=== PATIENT | female | born 1990 | race Asian ===

== ENCOUNTER 2019-08-31 16:57 | Inpatient (IN) | payer OTHER ==
[~2019-08-31] VITALS: Ht 152.4 cm; Wt 61.6 kg
[2019-08-31] VITALS (12 sets, daily range): BP systolic 126–158; BP diastolic 77–103
[2019-08-31] MEDS ORDERED: PRENTAB9 PO (17:23)
[2019-08-31] MEDS ORDERED: LACTATED RINGER'S 1000 ML IV STA (18:35)
[2019-08-31 19:09] LABS: BASO % 0.2 % (0.0-1.0); EOS % 0.4 % (0.0-3.0); HEMATOCRIT 41.1 % (36.0-47.0); HEMOGLOBIN 14.1 g/dl (12.0-15.5); LYMPH # 1.8 10^3/uL (1.5-5.0); LYMPH % 33.5 % (24.0-44.0); MEAN CORPUSCULAR HEMOGLOBIN 32.3 pg (27.0-33.0); MEAN CORPUSCULAR HGB CONC 34.3 g/dl (32.0-36.5); MEAN CORPUSCULAR VOLUME 94.3 fl (80.0-96.0); MONO # 0.6 10^3/uL (0.0-0.8); MONO % 11.2 % (0.0-5.0); NEUTROPHILS # 2.9 10^3/uL (1.5-8.5); NEUTROPHILS % 54.3 % (36.0-66.0); PLATELET COUNT, AUTOMATED 193 10^3/uL (150-450); RED BLOOD COUNT 4.36 10^6/uL (4.00-5.40); WHITE BLOOD COUNT 5.3 10^3/uL (4.0-10.0)
--- NOTE | 2019-08-31 19:13 | HPEPDOC ---
Obstetrical History & Physical General Date of Admission Aug 31, 2019 at 16:57 History of Present Illness Patient is at 38.2 weeks by 18 week dating ultrasound with GDM A1 and pree clampsia. She denies contractions, loss of fluid, bleeding. Good movement. Patient had regular blood pressures and good diabetes control with fastings in the 60s to 80s and postprandials in the 80s to 110s. In the past week, her blood pressure went from the normal range to 140s over 90s. For the past 2 days. She began seeing spots continuously. No headaches or facial swelling or right upper quadrant pain. Preeclamptic panel has been normal with 24-hour urine protein in the 200s. 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 Past Medical History Medical History none Surgical History: Denies/None Family History Significant Family History: No pertinent family hx Social History Marital Status: Family situation: Spouse/partner home Psychosocial History: No pertinent psych hx * Smoker: non-smoker Alcohol: Denies Drugs: denies Abuse Violence Screening Have you been hit/kicked/slapp: No Have you been sexually assault: No Imunizations Tdap status: current Influenza Status: current Allergies Coded Allergies: amoxicillin (Verified Allergy, Intermediate, 08/31/19) RASH Medications Scheduled No.137/Iron/Folic Acd ( Vitamin Tablet) 1 Each Tablet, 1 TAB PO DAILY Physical Examination Physical Examination GENERAL: Alert and oriented times three. BREAST: . ABDOMEN: Gravid and non-tender to touch. FETUS: Is vertex (VTX) by US on 08/06/2019, fetus is vertex (VTX) by [facility]. HEART RATE: Regular rate and rhythm. LUNGS: Clear to auscultation (CTA). EXTREMITIES: No edema. Laboratory Data 24H LABS Laboratory Tests 2 08/31/19 17:09: Serology Scanned Report Hepatitis B Testing 08/31/19 18:28: CBC/BMP Pertinent Laboratoy Data Blood Type: A+ RBC Antibody Screen: Negative HIV: Negative Hepatitis B: Negative Rapid Plasma Reagin: Nonreactive Rubella: Immune Varicella: Immune Chlamydia/Gonorrhea: Negative Group B Streptococcus: Negative Quad Screen Test: Negative ( ) Glucose Tolerance Test: 191 Anatomy Ultrasound Ultrasound Date: Apr 30, 2019 Placenta Location: Anterior Normal Anatomy: Yes Placenta Previa: No Estimated Weight (grams): 368 Steroid Therapy Steroid Therapy: No Vaginal Examination Dilation: None Effacement: 30% Station: -3 Cervical Consistency: Medium Cervical Position: Posterior Assessment Heart Rate (FHR): 140 Variability: Moderate Decelerations: None Tocometer Contractions: No Multi-drug resistant Organism: No history of MDRO Assessment/Plan Assessment Patient is at 38.2 weeks by 18 week dating ultrasound with GDM A1 and preeclampsia. Admit for preeclampsia with induction and expect delivery by . Induction to be started with oral Cytotec. No need for magnesium sulfate at this time due to blood pressures in the 140s over 90s. Pain management per patient preference, which was discussed with her. I discussed risks of with patient of failure with section, distress, bleeding, infection, , vaginal or perineal or neighboring organ tear. Currently, fetus is reassuring. GBS is negative, no need for antibiotics. Plan Admit and orient. [employer] and consent. Diet: Regular. Group B Streptococcus (GBS) negative. Labs and intravenous (IV) per unit protocol. Counseled on Pitocin and induction of labor (IOL) with oral Cytotec. Lactated Ringers (LR): Bolus 500 mL, then at, 125 mL/hr once in active labor. Anticipate normal spontaneous delivery (). Pain medication per patient desire. No Silver MD Aug 31, 2019 19:13
[2019-08-31] MEDS: miSOPROStol 25 MCG 1/4 TAB (S0191) PO PRN (19:28)
[2019-08-31] MEDS ORDERED: BUTORPHANOL 2 MG/ML INJ (J0595) IV PRN (19:30)
[2019-08-31] MEDS ORDERED: PROMETHAZINE INJ 25 MG/ML VIAL (J2550) IV PRN (19:30)
[2019-08-31] MEDS ORDERED: CALCIUM CARBONATE 500 MG CHEW U/D PO PRN (19:30)
[2019-08-31] MEDS ORDERED: SIMETHICONE 80 MG CHEW TAB PO PRN (19:30)
[2019-08-31] MEDS ORDERED: ACETAMINOPHEN 500 MG TAB PO PRN (19:30)
[2019-08-31] MEDS ORDERED: MOM 30ML SUSPENSION UDC PO PRN (19:30)
[2019-09-01] VITALS (33 sets, daily range): BP systolic 88–176; BP diastolic 50–101
[2019-09-01] MEDS: miSOPROStol 25 MCG 1/4 TAB (S0191) PO PRN (01:31)
[2019-09-01] MEDS ORDERED: miSOPROStol 50 MCG 1/2 TAB (S0191) PO PRN (07:30)
[2019-09-01 10:44] LABS: ALT/SGPT 24 U/L (12-78); BILIRUBIN,TOTAL 0.3 MG/DL (0.2-1.0); CREATININE FOR GFR 0.85 MG/DL (0.55-1.30); GLOMERULAR FILTRATION RATE > 60.0 (>60); LDH LACTATE DEHYDROGENASE 112 U/L (84-246); URIC ACID 6.6 MG/DL (2.6-6.0)
[2019-09-01 11:20] LABS: TOTAL PROTEIN,RANDOM URINE 36.9 MG/DL (0.0-12.0)
--- NOTE | 2019-09-01 12:58 | IPN ---
DATE: 09/01/2019 This is a 28-year-old, 1, para 0 at 38 and 3, was admitted for induction of labor because of preeclampsia and AGDM 1 well-controlled. She had two lots of misoprostol 25 mg, had some contractions. Presently, she is having contractions 2-6 minutes apart. She is feeling them and when they come, they are moderate intensity. No vaginal bleeding or loss. Category 1 strip. Evaluation of the cervix is posterior, fingertip, minus 2 station, 50% effaced. She was given one lot of Cytotec 50 mg, and we will continue on cervical ripening. Safe to proceed. Presently, her blood pressure is 143/81. She has been running with a diastolic in the low 90s. She has only had two episodes of midrange, severe range blood pressures back on 08/31/2019 at 1919 hours and 1927 hours at 156/103 and 158/93. Her chemistry shows her hemoglobin 14.1, hematocrit 41.1, and platelets are 193. Chemistry was not done; however we are anticipating delivery of this patient.
[2019-09-01] MEDS ORDERED: SLF 3 ML SYR IV PRN (13:00)
[2019-09-01] MEDS: SLF 3 ML SYR IV SCH ×2 (13:01→22:00)
[2019-09-01] MEDS: LR 1,000 ML IV SCH ×2 (14:07→18:00)
--- NOTE | 2019-09-01 15:03 | IPN ---
DATE: 09/01/2019 1, para 0 at 38 and 3 weeks of gestation who was admitted for with contractions. No loss of fluid or bleeding. She has a history of preeclampsia and GDA 1, well controlled. She had been given two lots of Cytotec at 25 and 25 and then she was given 50 mg Cytotec. She had good contractions 2-6 minutes apart, down to 2-4 minutes apart. However, blood pressures have been drifting upwards. She has had a couple of 160s on 82, 169/100, 131/90. Her reflexes are normal. Eye grounds are normal. No right upper quadrant pain. No edema and otherwise she is feeling well except she is minding her contractions. When she was initially seen, she was a fingertip, posterior and high. She has been assessed 2 hours later prior to the admission of Cytotec 50 mg, she was 1 cm posterior and still high. She is presently complaining of intense contraction pain and is requesting IV pain medication. PHYSICAL EXAMINATION: On examination, 100% effaced. She is 4 cm, bulging membranes and 0 station. Presently, she has requested IV pain meds, which will be is administered shortly. Her evaluation for her preeclampsia showed that she had a normal CBC and platelets. Her chemistry showed that her uric acid was 6.6. Her liver functions were normal and GFR was greater than 60. Her protein creatinine ratio was 0.336. Our plan of management is to give her IV meds, have her get her pain under control, do an artificial rupture of membranes, anticipating good progress after that, monitoring her blood sugars. We will hold off with the mag sulfate at present time. She may require magnesium sulfate .
[2019-09-01] MEDS ORDERED: OXYTOCIN DRIP 30 UNITS in IV 1 EA IV SCH (17:15)
--- NOTE | 2019-09-01 18:21 | IPN ---
DATE: 09/01/2019 This 24-year-old 1, para 0 was admitted with contractions and induction of labor because of being in gestational diabetes mellitus 1 (aGDM 1) and preeclampsia. She had a reasonable sleep after some intravenous (IV) medication. She was still only 4 cm and 50-70% effaced at -1 station, but the contractions were spacing out. Reviewed the risks and benefits of artificial rupture or membranes and she agreed which, we did and she had an artificial rupture of membranes (ARM) of clear liquor. The vertex came down in the occiput posterior (OP) position. She is going to require some augmentation with Pitocin, which she has been placed in. She presently still has a category one strip and is safe to proceed.
[2019-09-01] MEDS ORDERED: LR 500 ML IV ONE (19:00)
[2019-09-01 19:15] LABS: HEMATOCRIT 44.2 % (36.0-47.0); HEMOGLOBIN 14.8 g/dl (12.0-15.5); MEAN CORPUSCULAR HEMOGLOBIN 31.9 pg (27.0-33.0); MEAN CORPUSCULAR HGB CONC 33.5 g/dl (32.0-36.5); MEAN CORPUSCULAR VOLUME 95.3 fl (80.0-96.0); PLATELET COUNT, AUTOMATED 201 10^3/uL (150-450); RED BLOOD COUNT 4.64 10^6/uL (4.00-5.40); WHITE BLOOD COUNT 9.9 10^3/uL (4.0-10.0)
[2019-09-01] MEDS ORDERED: FENTANYL 2MCG/ML ROPIVACAINE 0.2% IN 0.9% NACL 100ML IVBAG As Ordered ONE (19:36)
[2019-09-01] MEDS ORDERED: EPIDURAL COMMENT XX SCH (20:00)
[2019-09-01] MEDS ORDERED: diphenhydrAMINE INJ 50MG/ML VIAL (J1200) IV PRN (20:00)
[2019-09-01] MEDS ORDERED: LACTATED RINGER'S 1000 ML IV PRN (20:00)
[2019-09-01] MEDS ORDERED: EPIDURAL/PCA KEYS XX PRN (20:00)
[2019-09-01] MEDS ORDERED: ONDANSETRON 4MG/2ML VIAL (J2405) IV PRN (20:00)
[2019-09-01] MEDS ORDERED: FENTANYL/ROPIVACAINE/NACL BAG 100 ML EPIDURAL SCH (20:00)
[2019-09-01] MEDS ORDERED: ePHEDrine SULFATE 25 MG/5 ML(5MG/ML) SYRINGE IV PRN (20:00)
[2019-09-01] MEDS ORDERED: REFRIGERATOR IV KEYS XX PRN (20:00)
[2019-09-01] MEDS ORDERED: NALOXONE INJ 0.4 MG/1 ML VIAL (J2310) IV PRN (20:00)
--- NOTE | 2019-09-01 20:55 | IPN ---
DATE: 09/01/2019 at 2030 hours This patient was admitted with occasional contractions with induction of labor because of preeclampsia and AGDM 1, well controlled. She had an epidural in place and had some spontaneous late decelerations. Bolusing of fluid and repositioning somewhat improved the contraction pattern, presently a category 2 strip. tachycardia runs of 180 down to 150. Contractions are about 2-4 minutes apart. She is on Pitocin 6 milliunits, and this is where the Pitocin has been maintained. On digital examination by the nurse, she is 4-5 cm, well applied to the cervix and -2 station. No meconium was noted. The patient is afebrile, 99.1, and her last blood pressure was 150/92, respirations 16, pulse 123. Epidural is working appropriately. We will re-evaluate this lady in 1 hour's time unless there is indication to move forward earlier. At the present time, it is safe to proceed. We are going to maintain the Pitocin 6 milliunits unless category 2 strip resolves to a category 1.
--- NOTE | 2019-09-01 23:01 | IPN ---
DATE: 09/01/2019 Time is 2200 hours on 09/01/2019 This lady is a 1, para 0, was admitted for induction of labor having AGDM1, well controlled and preeclampsia (pre-e). She had slow progress until she had her epidural in place. She had an artificial rupture of membranes (AROM) draining clear liquor. She was still 5 cm and 0 station. She did have some lates and some variables and a category 2 strip. With re-bolusing and changing positions, the baby somewhat recovered. There was some prolonged areas of tachycardia but now the baseline is running about 150. She is at 8 milliunits per minute and evaluation of her cervical dilatation: She is an anterior lip, off to the right. There is some molding and still 0 station. Her blood pressure is 117/70, heart rate is 120, blood pressures have somewhat come down since her epidural 131/68, 136/66. Our plan of management is to maintain the Pitocin, and since we are somewhat reassuring, we will continue on and reevaluate her in 2 hours' time. Safe to proceed.
[2019-09-02] MEDS ORDERED: MOM 30ML SUSPENSION UDC PO PRN (01:00)
[2019-09-02] MEDS ORDERED: METHYLERGONOVINE MALEATE 0.2 MG TAB PO PRN (01:00)
[2019-09-02] MEDS ORDERED: IBUPROFEN 600 MG TAB PO PRN (01:00)
[2019-09-02] MEDS ORDERED: ANUSOL HC CREAM 30GM TOP PRN (01:00)
[2019-09-02] MEDS ORDERED: ACETAMINOPHEN TAB 650MG DOSE (2X325MG) PO PRN (01:00)
[2019-09-02] MEDS ORDERED: DOCUSATE SODIUM 100 MG CAP PO PRN (01:00)
[2019-09-02] MEDS ORDERED: IBUPROFEN 800 MG TAB PO PRN (01:00)
[2019-09-02] MEDS ORDERED: RHOGAM 300 MCG (1500 IU) INJ (J2790) IM SCH (01:00)
[2019-09-02] MEDS ORDERED: OXYTOCIN DRIP 30 UNITS in IV 1 EA IV ONE (01:00)
[2019-09-02] MEDS ORDERED: OXYTOCIN INJ 10 UNITS/ML VIAL (J2590) IV ONE (01:00)
[2019-09-02] MEDS ORDERED: MEASLES,MUMPS,RUBELLA VACCINE INJ (MMR-II) (90707) SC SCH (01:00)
[2019-09-02] MEDS ORDERED: ACETAMINOPHEN 500 MG TAB PO PRN (01:00)
[2019-09-02] MEDS ORDERED: DIBUCAINE 1% OINTMENT 30GM TOP PRN (01:00)
[2019-09-02 01:07] LABS: CORD GAS ABE A -9.3; CORD GAS ABE V -9.3; CORD GAS HCO3 V 18.1 MEQ/L; CORD GAS O2 SAT A 28.2 %; CORD GAS O2 SAT V 57.5 %; CORD GAS PCO2 V 44.8 mmHg; CORD GAS PH A 7.155 UNITS; CORD GAS PH V 7.224 UNITS; CORD GAS PO2 A 19.2 mmHg; CORD GAS PO2 V 27.8 mmHg; CORD GAS SBC A 15.7 MEQ/L; CORD GAS SBC V 16.3 MEQ/L; CORD GAS TCO2 A 21.8 MEQ/L; CORD GAS TCO2 V 19.5 MEQ/L
[2019-09-02 03:34] VITALS: BP 161/93
[2019-09-02 05:51] VITALS: BP 138/82
[2019-09-02] MEDS ORDERED: OXYTOCIN INJ 10 UNITS/ML VIAL (J2590) As Ordered ONE (08:11)
[2019-09-02] MEDS: PRENATAL VITAMINS CHEWABLE TABLET PO SCH (09:49)
--- NOTE | 2019-09-02 10:02 | IPNPDOC ---
Text Note Date of Service The patient was seen on 09/02/19. NOTE Called by RN that patient hasn't voided since 10pm last night. Patient will need likely need bladder rest due to overdistension from nerve distension. RN instructed to place frances and keep in place for 24hrs if PVR 500mL or greater. VS,Fishbone, I+O VS, Fishbone, I+O Laboratory Tests 09/01/19 10:04 09/01/19 19:05 Vital Signs Date Time Temp Pulse Resp B/P (MAP) Pulse Ox O2 Delivery O2 Flow Rate FiO2 09/02/19 05:51 100.3 115 17 138/82 (100) 98 09/01/19 14:15 Room Air I&O- Last 24 Hours up to 6 AM 09/02/19 06:00 Intake Total 60 ml Output Total 1750 ml Balance -1690 ml No Silver MD Sep 02, 2019 10:02
[2019-09-02 11:45] VITALS: BP 126/78
--- NOTE | 2019-09-02 12:38 | DN ---
DATE: 09/02/2019 28-year-old 1 was admitted with a 38 and 2 weeks gestation with pre and AGDM1 well-controlled, induction of labor. At full dilatation she had persistent tachycardia up to 190. She did some excellent pushing however, the baby's head was asynclitic. We used a low vacuum, one pull to bring it into the occiput anterior (OA) position and under the symphysis pubis after which we removed the vacuum and then she had a spontaneous vaginal delivery of female infant 5 pounds 11 ounces 2570 grams of 7 and 8 at one and five minutes respectively. Arterial and venous pH were done. Placenta delivered spontaneously thereafter. Three-vessel cord membranes and tissues intact. Appeared to be calcified. Baby appeared to be and SGA baby, however was 38 and 3. She had a small first-degree tear which was oversewn usual fashion with #2-0 Vicryl on J339. Uterus contracted well under Pitocin. Anterior and posterior lateral maria were intact. Sphincter was tight and upon leaving the room the uterus was well contracted minimal bleeding. Estimated blood loss 200 mL. The patient and baby tolerated the procedure well.
[2019-09-02 14:00] VITALS: BP 137/82
[2019-09-02 18:00] VITALS: BP 143/82
[2019-09-02 22:00] VITALS: BP 138/86
[2019-09-03 02:00] VITALS: BP 141/82
[2019-09-03 05:56] VITALS: BP 122/84
--- NOTE | 2019-09-03 06:10 | IPNPDOC ---
Progress Note Date of Service: Sep 03, 2019 Day#: 1 Progress Note SUBJECT: Patient is a 28-year-old 1 now Para 1 status post uncomplicated VAVD with 1st degree laceration repair, doing well day # 1. She has been ambulating and tolerating regular diet. She had difficulty voiding yesterday and has since had a frances in place. Breast feeding without issue. Reports lochia is like a normal period. Patient is ambulating well. [Reports some cramping with . Denies any pain. OBJECTIVE: VITAL SIGNS: Within normal limits, afebrile. Alert and oriented times three. Breast without erythema or masses Breath sounds clear to auscultation. Heart rate: Regular rate and rhythm, no murmurs, rubs or gallops. Abdomen: Fundus firm at U-2. Soft, NTTP. Minimal lochia. Frances in place. Lower extremeties without edema or tenderness. ASSESSMENT: Patient is a 28-year-old 1 now Para 1 status post uncomplicated VAVD with 1st degree laceration repair, doing well day # 1. Discontinue frances and voiding trial today. Vitals within normal limits, afebrile, hemodynamically stable with no evidence of infection. PLAN: 1. Routine care today. 2. Tylenol and Motrin for pain. 3. Encourage breast feeding and ambulation. 4. Voiding trial. VS, I&O, 24H, Fishbone Vital Signs/I&O Vital Signs Date Time Temp Pulse Resp B/P (MAP) Pulse Ox O2 Delivery O2 Flow Rate FiO2 09/03/19 05:56 97.5 87 18 122/84 (97) 100 Room Air I&O- Last 24 Hours up to 6 AM 09/03/19 06:00 Intake Total 4020 ml Output Total 4975 ml Balance -955 ml No Silver MD Sep 03, 2019 06:10
[2019-09-03 07:27] LABS: HEMATOCRIT 36.4 % (36.0-47.0); MEAN CORPUSCULAR HEMOGLOBIN 32.7 pg (27.0-33.0); MEAN CORPUSCULAR HGB CONC 34.1 g/dl (32.0-36.5); PLATELET COUNT, AUTOMATED 150 10^3/uL (150-450); RED BLOOD COUNT 3.79 10^6/uL (4.00-5.40); WHITE BLOOD COUNT 10.8 10^3/uL (4.0-10.0)
[2019-09-03 07:41] LABS: HEMOGLOBIN 12.4 g/dl (12.0-15.5)
[2019-09-03] MEDS: PRENATAL VITAMINS CHEWABLE TABLET PO SCH (08:56)
[2019-09-03 18:00] VITALS: BP 142/90
[2019-09-04 06:00] VITALS: BP 137/89
--- NOTE | 2019-09-04 06:57 | IPNPDOC ---
Progress Note Date of Service: Sep 04, 2019 Day#: 2 Progress Note SUBJECT: 28-year-old 1 now Para 1 status post uncomplicated VAVD with 1st degree laceration repair, ppd #2. Patient was straightcathed yesterday for difficulty voiding. She has been voiding without issues since. This AM bladder scan post void showed minimal urine in bladder. Patient without discomfort. She has been ambulating, voiding spontaneously without issue and tolerating regular diet. Breast feeding without issue. Reports lochia is light. Undecided on contraceptive. OBJECTIVE: VITAL SIGNS: Within normal limits, afebrile. Alert and oriented times three. Abdomen: Fundus firm at U. Soft, NTTP. LE: no edema/erythema/tenderness A/P: Patient is ppd #2, doing well. Discussed recovery and discharge instructions. continue routine ppc. patient instructed to f/u in clinic in 1 week for BP check after discharge. d/c home today. VS, I&O, 24H, Fishbone Vital Signs/I&O Vital Signs Date Time Temp Pulse Resp B/P (MAP) Pulse Ox O2 Delivery O2 Flow Rate FiO2 09/04/19 06:00 97.8 71 18 137/89 (105) 09/03/19 05:56 100 Room Air I&O- Last 24 Hours up to 6 AM 09/04/19 05:59 Output Total 3325 ml Balance -3325 ml Laboratory Data 24H LABS Laboratory Tests 2 09/03/19 06:54: Nucleated Red Blood Cells % (auto) 0.0 CBC/BMP Laboratory Tests 09/03/19 06:54 LIAT RUDOLPH DO Sep 04, 2019 06:57
--- NOTE | 2019-09-04 07:11 | OBDS ---
[facility] Obstetrical Discharge Sum. Obstetrical Discharge Summary Gas Check Pad Maker/Provider: Stevenson Haung MD : 1 Term: 1 Pre-term: 0 Abortions: 0 Livin VDRL: Non-Reactive Rh: Positive Rubella: Immune Sex: Female Infant Weight: grams (2570) Anesthesia: Regional Anesthesia A/P, Post Course List any complications Admission diagnosis: 1) Gravid at 38+2wks 2) pre-eclampsia 3) gestational diabetes A1 Discharge diagnosis: 1) s/p Vacuum assisted vaginal delivery 2) First degree laceration 3) pre-eclampsia 4) gestational diabetes A1 Condition at Discharge: stable Discharge Instructions: Home Activity: as tolerated Diet: regular Medications: Filled at [facility] Follow-up: 1 week f/u at OB clinic Hospital Course: Patient admitted for induction of labor due to pre-eclampsia. Her course also complicated by gestational diabetes diet controlled. She progressed to have to second stage of labor and had a vacuum assisted vaginal delivery secondary to non reassuring heart tracing. Remainder of her course uncomplicated and patient discharged home on day #2. LITA RUDOLPH DO Sep 04, 2019 01:28
[2019-09-04] MEDS: PRENATAL VITAMINS CHEWABLE TABLET PO SCH (09:49)
== END 2019-09-04 12:35 | disposition home or self-care (01) | DRG 807 ==
LOC: M LDI 16:57 → M OBS 09-02 03:15
PROVIDERS: ADMIT Obstetrics & Gynecology; ATTEND Obstetrics & Gynecology
PROC: 3E0P7GC Introduction of Other Therapeutic Substance into Female Reproductive, Via Natural or Artificial Opening (ICD-10-PCS; 2019-09-01)
PROC: 10907ZC Drainage of Amniotic Fluid, Therapeutic from Products of Conception, Via Natural or Artificial Opening (ICD-10-PCS; 2019-09-01)
PROC: 10D07Z6 Extraction of Products of Conception, Vacuum, Via Natural or Artificial Opening (ICD-10-PCS; principal; 2019-09-02)
PROC: 0HQ9XZZ Repair Perineum Skin, External Approach (ICD-10-PCS; 2019-09-02)
DX: O14.04 Mild to moderate pre-eclampsia, complicating childbirth (principal); Z37.0 Single live birth; Z3A.38 38 weeks gestation of pregnancy; O24.420 Gestational diabetes mellitus in childbirth, diet controlled; O76 Abnormality in fetal heart rate and rhythm complicating labor and delivery; O64.0XX0 Obstructed labor due to incomplete rotation of fetal head, not applicable or unspecified; O70.0 First degree perineal laceration during delivery